=== PATIENT | male | born 1965 | race Caucasian/White ===

== ENCOUNTER 2017-02-24 23:21 | Emergency (ER) | payer OTHER ==
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
[2017-02-24] MEDS ORDERED: MORPHINE SULFATE 4 MG/ML INJ IV PUSH ONE (23:45)
[2017-02-25 00:09] VITALS: BP 107/69; PULSE 60; RESP 16; O2SAT 95
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
[2017-02-25 01:44] VITALS: BP 107/69; PULSE 63; RESP 18; O2SAT 98
== END 2017-02-25 02:54 | disposition home or self-care (01) ==
LOC: NEPD 23:21
DX: M54.6 Pain in thoracic spine (principal); V49.60XA Unspecified car occupant injured in collision with unspecified motor vehicles in traffic accident, initial encounter; Y92.488 Other paved roadways as the place of occurrence of the external cause
CPT/HCPCS: 72128; 72131; 96374; 99285; J2270